=== PATIENT | female | born 1955 | race Caucasian/White ===

== ENCOUNTER → 2017-07-15 10:22 | Outpatient (POV) | payer MEDICARE, SELFPAY | PROVIDERS: Visit Provider Dentist | DX: Z00.00 Encounter for general adult medical examination without abnormal findings (principal) ==

== ENCOUNTER → 2017-07-29 11:51 | Outpatient (POV) | payer MEDICARE, SELFPAY | PROVIDERS: Visit Provider Dentist | DX: Z00.00 Encounter for general adult medical examination without abnormal findings (principal) ==

== ENCOUNTER → 2022-03-23 17:59 | Outpatient (CLI) | payer MEDICARE, SELFPAY | PROVIDERS: PCP Family Medicine; Visit Provider Family Medicine | DX: R30.0 Dysuria (principal); B96.29 Other Escherichia coli [E. coli] as the cause of diseases classified elsewhere | CPT/HCPCS: 87086; 87088; 87186 ==

== ENCOUNTER → 2022-07-02 17:30 | Outpatient (CLI) | payer MEDICARE, SELFPAY | PROVIDERS: PCP Family Medicine; Visit Provider Family Medicine | DX: J02.9 Acute pharyngitis, unspecified (principal) | CPT/HCPCS: 87070; C9803; U0003; U0005 ==

== ENCOUNTER → 2022-12-31 23:51 | Outpatient (CLI) | payer MEDICARE, SELFPAY | PROVIDERS: PCP Family Medicine; Visit Provider Family Medicine | DX: N39.0 Urinary tract infection, site not specified (principal); B96.29 Other Escherichia coli [E. coli] as the cause of diseases classified elsewhere | CPT/HCPCS: 87086; 87088; 87186 ==

== ENCOUNTER → 2023-02-19 17:53 | Outpatient (CLI) | payer MEDICARE, SELFPAY | PROVIDERS: PCP Family Medicine; Visit Provider Family Medicine | DX: R30.0 Dysuria (principal); B96.29 Other Escherichia coli [E. coli] as the cause of diseases classified elsewhere | CPT/HCPCS: 87086 ==

== ENCOUNTER → 2023-04-21 16:40 | Outpatient (CLI) | payer MEDICARE, SELFPAY | PROVIDERS: PCP Family Medicine; Visit Provider Family Medicine | DX: N39.0 Urinary tract infection, site not specified (principal); B96.4 Proteus (mirabilis) (morganii) as the cause of diseases classified elsewhere; B96.1 Klebsiella pneumoniae [K. pneumoniae] as the cause of diseases classified elsewhere; B96.89 Other specified bacterial agents as the cause of diseases classified elsewhere | CPT/HCPCS: 87086 ==

== ENCOUNTER 2023-05-21 16:22 | Outpatient (CLI) | payer MEDICARE, SELFPAY | END 2023-05-21 23:59 | LOC: LAB.DROPOF 16:23 | PROVIDERS: PCP Nurse Practitioner Family; Visit Provider Nurse Practitioner Family | DX: N39.0 Urinary tract infection, site not specified (principal); B96.20 Unspecified Escherichia coli [E. coli] as the cause of diseases classified elsewhere; B96.89 Other specified bacterial agents as the cause of diseases classified elsewhere | CPT/HCPCS: 87086 ==

== ENCOUNTER 2023-05-31 15:22 | Outpatient (CLI) | payer MEDICARE, SELFPAY ==
[2023-06-04 00:09] LABS: Atopobium vaginae Low - 0 Score (.); BVAB2 Low - 0 Score (.); Candida albicans NAA Negative (Negative); Candida glabrata Negative (Negative); Chlamydia Trachomatis NAA Negative (Negative); HSV 1 NAA Negative (Negative); HSV 2 NAA Negative (Negative); Megasphaera 1 Low - 0 Score (.); Neisseria gonorrhoeae NAA Negative (Negative); Trich vag NAA Negative (Negative)
[2023-06-09 10:34] LABS: Atopobium vaginae 0; Bacterial Vaginosis Associated 0; Candida albicans, NAA 0
[2023-06-09 10:35] LABS: Candida glabrata, NAA 0; Megasphaera 1 0
[2023-06-09 20:13] LABS: Mycoplasma genitalium NAA Negative (Negative)
== END 2023-05-31 23:59 ==
LOC: LAB.DROPOF 15:22
PROVIDERS: PCP Nurse Practitioner Family; Visit Provider Urology
DX: B37.31 Acute candidiasis of vulva and vagina (principal); N76.0 Acute vaginitis; N39.0 Urinary tract infection, site not specified; B96.29 Other Escherichia coli [E. coli] as the cause of diseases classified elsewhere; R10.30 Lower abdominal pain, unspecified; R32 Unspecified urinary incontinence
CPT/HCPCS: 87086; 87491; 87529; 87563; 87591; 87661; 87798; 87801

== ENCOUNTER 2023-06-02 14:49 | Outpatient (CLI) | payer MEDICARE, SELFPAY ==
--- NOTE | 2023-06-02 14:50 | US_ITS ---
FINAL REPORT CLINICAL HISTORY: UTI X 5 WEEKS COMPARISON: None FINDINGS: RENAL ULTRASOUND: The right kidney measures 12 cm in length. There is no evidence of hydronephrosis or perinephric fluid collections. The left kidney measures 11.1 cm in length. There is no evidence of hydronephrosis or perinephric fluid collections. Incidental note is made of multiple splenic calcifications. IMPRESSION: Unremarkable bilateral renal ultrasound without evidence of hydronephrosis. Reviewed, Interpreted and Dictated by Abhi Chavez MD Transcribed by Mary Kay Espinoza Authenticated and [facility]
--- NOTE | 2023-06-02 15:18 | XR_ITS ---
FINAL REPORT CLINICAL HISTORY: UTI COMPARISON: None FINDINGS: SINGLE VIEW ABDOMEN A single view of the abdomen was obtained. There is a nonobstructive bowel gas pattern. There are no abnormally dilated loops of small bowel. No abnormal calcifications are identified. IMPRESSION: Nonobstructive bowel gas pattern. Reviewed, Interpreted and Dictated by Abhi Chavez MD Transcribed by Elise Arshad Authenticated and [facility]
[2023-06-02 16:01] LABS: Blood Urea Nitrogen 19 mg/dl (7-17); Estimated Glomerular Filt Rate 55 ml/min (>60); GFR (African American) 67 ML/MIN (>60)
== END 2023-06-02 23:59 ==
LOC: RAD 14:50
PROVIDERS: PCP Nurse Practitioner Family; Visit Provider Urology
DX: N39.0 Urinary tract infection, site not specified (principal); R32 Unspecified urinary incontinence
CPT/HCPCS: 36415; 74018; 76770; 82565; 84520

== ENCOUNTER 2023-08-16 23:19 | Outpatient (CLI) | payer MEDICARE, SELFPAY ==
[2023-08-16 17:58] LABS: Basophils # 0.1 K/mm3 (0-0.2); Basophils % 1.2 % (0.1-2.0); Eosinophils # 0.2 K/mm3 (0.0-0.4); Eosinophils % 2.1 % (0.1-12.0); Hematocrit 40.3 % (37.0-47.0); Hemoglobin 13.2 g/dL (12.2-16.2); Lymphocytes # 2.5 K/mm3 (0.7-4.5); Lymphocytes % 31.8 % (10-50); Mean Corpuscular HGB Conc 32.9 g/dL (31.8-35.4); Mean Corpuscular Hemoglobin 31.2 pg (27.0-31.2); Mean Platelet Volume 8.7 fl (7.4-10.4); Monocytes # 0.6 K/mm3 (0.1-1.0); Neutrophils # 4.6 K/mm3 (1.8-7.8); Neutrophils % 57.7 % (37.0-80.0); Platelet Count 364 K/mm3 (142-424); Red Blood Count 4.24 M/mm3 (4.20-5.40); Red Cell Distribution Width 12.5 % (11.5-17.5)
[2023-08-16 18:51] LABS: Alanine Aminotransferase 28 U/L (12-78); Albumin Level 4.2 g/dl (3.5-5.0); Albumin/Globulin Ratio 1.4 (1.1-1.8); Alkaline Phosphatase 167 U/L (38-126); Anion Gap 12.9 mEq/L (5-15); Aspartate Amino Transferase 30 U/L (14-36); Bilirubin,Total 0.7 mg/dl (0.2-1.3); Blood Urea Nitrogen 20 mg/dl (7-17); Calcium 9.9 mg/dl (8.4-10.2); Carbon Dioxide 27 mmol/L (22.0-30.0); Chloride 104 mmol/L (98-107); Chol/HDL Ratio 6.8 (1-3.5); Cholesterol 273 mg/dl (140-200); Estimated Glomerular Filt Rate 62 ml/min (>60); GFR (African American) 76 ML/MIN (>60); Globulin 2.9 g/dL (1.3-3.2); Glucose 213 mg/dl (74-100); HDL Cholesterol 40 mg/dl (40-60); Potassium 3.9 mmoL/L (3.5-5.1); Sodium 140 mmol/L (136-145); Total Protein,Serum 7.1 g/dl (6.3-8.2); Triglycerides 171 mg/dl (30-150); VLDL Cholesterol 34 mg/dL (0-40)
[2023-08-16 18:59] LABS: 25-OH Vitamin D, Total 35.4 ng/mL (30-100)
[2023-08-16 19:07] LABS: C-Reactive Protein 1.5 mg/L (0-4); Direct LDL Cholesterol 166.32 mg/dL (100-129)
[2023-08-16 19:27] LABS: Thyroid Stimulating Hormone 2.94 uIU/mL (0.465-4.68)
[2023-08-16 19:29] LABS: Hemoglobin A1C 10.8 % (4.0-6.0)
[2023-08-16 19:46] LABS: Vitamin B12 662 pg/mL (239-931)
[2023-08-18 08:30] LABS: FSH 57.5 mIU/mL (25.8-134.8); Progesterone 0.1 ng/mL (.)
[2023-08-21 22:07] LABS: Estrogen 192 pg/mL (40-244)
== END 2023-08-16 23:59 ==
LOC: LAB.DROPOF 23:20
PROVIDERS: PCP Nurse Practitioner Family; Visit Provider Nurse Practitioner Family
DX: E03.9 Hypothyroidism, unspecified (principal); R53.83 Other fatigue; R73.9 Hyperglycemia, unspecified; E78.1 Pure hyperglyceridemia; E55.9 Vitamin D deficiency, unspecified; Z68.26 Body mass index [BMI] 26.0-26.9, adult
CPT/HCPCS: 80053; 80061; 82306; 82607; 82672; 83001; 83036; 84144; 84443; 85025; 86140

== ENCOUNTER 2023-09-06 18:00 | Outpatient (CLI) | payer MEDICARE, SELFPAY | END 2023-09-06 23:59 | disposition home or self-care (01) | LOC: LAB.DROPOF 09-07 08:06 | PROVIDERS: PCP Family Medicine; Visit Provider Family Medicine | DX: N39.0 Urinary tract infection, site not specified (principal); B96.29 Other Escherichia coli [E. coli] as the cause of diseases classified elsewhere | CPT/HCPCS: 87086 ==

== ENCOUNTER 2023-11-16 16:42 | Outpatient (CLI) | payer MEDICARE, SELFPAY ==
[2023-11-16 17:18] LABS: Basophils # 0.1 K/mm3 (0-0.2); Basophils % 0.9 % (0.1-2.0); Eosinophils # 0.2 K/mm3 (0.0-0.4); Eosinophils % 2.9 % (0.1-12.0); Hematocrit 38.5 % (37.0-47.0); Hemoglobin 12.6 g/dL (12.2-16.2); Lymphocytes # 2.3 K/mm3 (0.7-4.5); Lymphocytes % 31.8 % (10-50); Mean Corpuscular HGB Conc 32.7 g/dL (31.8-35.4); Mean Corpuscular Volume 94.6 fl (81-99); Mean Platelet Volume 8.7 fl (7.4-10.4); Monocytes # 0.4 K/mm3 (0.1-1.0); Monocytes % 5.9 % (1.7-9.3); Neutrophils # 4.3 K/mm3 (1.8-7.8); Neutrophils % 58.4 % (37.0-80.0); Platelet Count 367 K/mm3 (142-424); Red Blood Count 4.06 M/mm3 (4.20-5.40); Red Cell Distribution Width 13.1 % (11.5-17.5); White Blood Count 7.4 K/mm3 (4.8-10.8)
[2023-11-16 17:55] LABS: Alanine Aminotransferase 25 U/L (12-78); Albumin Level 4.1 g/dl (3.5-5.0); Albumin/Globulin Ratio 1.4 (1.1-1.8); Alkaline Phosphatase 132 U/L (38-126); Anion Gap 11.4 mEq/L (5-15); Aspartate Amino Transferase 26 U/L (14-36); Bilirubin,Total 0.5 mg/dl (0.2-1.3); Blood Urea Nitrogen 19 mg/dl (7-17); Calcium 9.9 mg/dl (8.4-10.2); Carbon Dioxide 28 mmol/L (22.0-30.0); Chloride 108 mmol/L (98-107); Chol/HDL Ratio 4.3 (1-3.5); Cholesterol 204 mg/dl (140-200); Estimated Glomerular Filt Rate 50 ml/min (>60); GFR (African American) 60 ML/MIN (>60); Globulin 2.9 g/dL (1.3-3.2); Glucose 110 mg/dl (74-100); HDL Cholesterol 48 mg/dl (40-60); Potassium 4.4 mmoL/L (3.5-5.1); Sodium 143 mmol/L (136-145); Triglycerides 117 mg/dl (30-150); VLDL Cholesterol 23 mg/dL (0-40)
[2023-11-16 18:07] LABS: Direct LDL Cholesterol 117.87 mg/dL (100-129)
[2023-11-16 18:28] LABS: Thyroid Stimulating Hormone 1.94 uIU/mL (0.465-4.68)
[2023-11-16 19:19] LABS: Hemoglobin A1C 8.5 % (4.0-6.0)
== END 2023-11-16 23:59 | disposition home or self-care (01) ==
LOC: LAB.DROPOF 16:43
PROVIDERS: PCP Family Medicine; Visit Provider Family Medicine
DX: E11.9 Type 2 diabetes mellitus without complications (principal); Z79.84 Long term (current) use of oral hypoglycemic drugs
CPT/HCPCS: 80053; 80061; 83036; 84443; 85025

== ENCOUNTER 2023-12-13 16:47 | Outpatient (CLI) | payer MEDICARE, SELFPAY | END 2023-12-13 23:59 | disposition home or self-care (01) | LOC: LAB.DROPOF 16:48 | PROVIDERS: PCP Nurse Practitioner Family; Visit Provider Nurse Practitioner Family | DX: N39.0 Urinary tract infection, site not specified (principal) | CPT/HCPCS: 87086; 87088; 87186 ==

== ENCOUNTER 2024-01-28 16:33 | Outpatient (CLI) | payer MEDICARE, SELFPAY | END 2024-01-28 23:59 | disposition home or self-care (01) | LOC: LAB.DROPOF 16:33 | PROVIDERS: PCP Nurse Practitioner Family; Visit Provider Nurse Practitioner Family | DX: R39.9 Unspecified symptoms and signs involving the genitourinary system (principal); N39.0 Urinary tract infection, site not specified | CPT/HCPCS: 87086; 87088; 87186 ==

== ENCOUNTER 2024-10-03 14:38 | Outpatient (CLI) | payer MEDICARE, SELFPAY | END 2024-10-03 23:59 | disposition home or self-care (01) | LOC: LAB.DROPOF 10-04 10:20 | PROVIDERS: PCP Family Medicine; Visit Provider Family Medicine | DX: N39.0 Urinary tract infection, site not specified (principal); B96.20 Unspecified Escherichia coli [E. coli] as the cause of diseases classified elsewhere | CPT/HCPCS: 87086; 87088; 87186 ==

== ENCOUNTER 2024-11-24 14:45 | Outpatient (CLI) | payer MEDICARE, SELFPAY ==
--- OUTSIDE RECORDS SUMMARY | 2024-11-27 10:33 | XMS_ITS | Clinical Summary ---
[facility] Address [address] [place] [address] Care Team Providers Care Federal Judicial Law Clerk Name Role Phone Davion Sanchez MD Primary Care Provider [phone] Allergies Active Allergy Reactions Criticality Noted Date Comments Diphenhydramine Dizziness Medium 05/23/2018 Caffeine Arrhythmia Low 05/23/2018 Contrast Dye (Echo Or Unknown Ct/Mr) Hives Medium 04/01/2018 Ibuprofen Arrhythmia Low 05/23/2018 Levofloxacin Myalgia Medium 05/23/2018 Sulfa Antibiotics Other (See Comments) Medium 04/01/20 18 Blisters in the mouth Medications chlorpheniramin e (CHLOR-TRIMETON ) 4 MG tablet Take 4 mg by mouth Daily. Active Vitamin D, Cholecalciferol , (CHOLECALCIFERO L) 400 units tablet Take 400 Units by mouth Daily. Active citalopram (CeleXA) 10 MG tablet Take 20 mg by mouth Every Night. Active dexamethasone (DECADRON) 0.5 MG tablet Take 0.5 mg by mouth Daily. Active fluticasone (FLONASE) 50 MCG/ACT nasal spray 2 sprays into the nostril(s) as directed by provider Daily. Active gemfibrozil (LOPID) 600 MG tablet Take 600 mg by mouth 2 (Two) Times a Day. Active levothyroxine (SYNTHROID, LEVOTHROID) 50 MCG tablet Take 50 mcg by mouth Daily. Active simvastatin (ZOCOR) 10 MG tablet Take 10 mg by mouth Every Night. Active promethazine (PHENERGAN) 12.5 MG tablet Take 12.5 mg by mouth Every 6 (Six) Hours As Needed for Nausea or Vomiting. Active Multiple Vitamins-Minera ls (MULTI COMPLETE PO) Take 1 tablet by mouth. Active Estrogens, Conjugated (PREMARIN VA) Insert 1 dose into the vagina. Active phenylephrine (SUDAFED PE) 10 MG tablet Take 10 mg by mouth Every 4 (Four) Hours As Needed for Congestion (inner ear). Active ondansetron (ZOFRAN) 4 MG tablet Take 4 mg by mouth Every 8 (Eight) Hours As Needed for Nausea or Vomiting. Active nystatin (MYCOSTATIN) 181600 UNIT/GM cream Apply topically to the appropriate area as directed 2 (Two) Times a Day. Active acetaminophen (TYLENOL) 500 MG tablet Take 2 tablets by mouth Every 6 (Six) Hours As Needed for Mild Pain for up to 4 doses. 8 tablet 9 Active ALPRAZolam (XANAX) 0.25 MG tablet Take 1 tablet by mouth 2 (Two) Times a Day. 10 tablet 9 Active aspirin 81 MG chewable tablet Chew 1 tablet Daily. 9 Active docusate sodium 100 MG capsule Take 100 mg by mouth 2 (Two) Times a Day. 9 Active HYDROcodone-taylor taminophen (NORCO) 5-325 MG per tablet Take 1 tablet by mouth Every 6 (Six) Hours As Needed for pain 6 tablet 11/25/2020 1:20 PM EDT 1 Active ibuprofen (ADVIL,MOTRIN) 600 MG tablet Take 1 tablet by mouth Every 6 (Six) Hours As Needed for pain 15 tablet 1 Active albuterol sulfate HFA 108 (90 Base) MCG/ACT inhaler Inhale 2 puffs Every 4 (Four) Hours As Needed for Wheezing or Shortness of Air. 18 g 1 Active amoxicillin-cla vulanate (AUGMENTIN) 875-125 MG per tablet Take 1 tablet by mouth Every 12 (Twelve) Hours. 14 tablet 3 Active Active Problems Problem Noted Date Diagnosed Date Aspiration pneumonia of left lung due to vomit 1 06/12/2020 Pneumonia of left lung due to infectious organis m 04/11/2021 Esophagitis 04/11/2021 IBS (irritable bowel syndrome) 04/11/2021 History of breast cancer 04/11/2021 Meniere's disease 04/11/2021 S/P low anterior resection 06/01/2018 Leukocytosis, likely reactive 05/31/2018 Acute blood loss anemia, mild, asymptomatic 05/11 Acute postoperative pain 05/31/2018 History of colonic diverticulitis 05/30/2018 Prediabetes 05/30/2018 Hypokalemia, replaced. 04/01/2018 Hypothyroidism Hyperlipidemia Diverticulitis Anxiety and depression Resolved Problems Problem Noted Date Diagnosed Date Resolved Date Elevated liver enzymes 04/11/202104/13 PATO (acute kidney injury) 04/11/2021 Lactic acidosis 04/11/2021 04/13/2021 Lower GI bleed 04/01/2018 04/06/2018 Acute blood loss anemia 04/01/201803/11 Family History Medical History Relation Name Comments Ulcerative colitis Father Relation Name Status Comments Father Social History Tobacco Use Types Packs/Day Years Used Date Smoking Tobacco: Former Cigarettes 1 3 1 978 - 1980 Smokeless Tobacco: Never Alcohol Use Standard Drinks/Week Comments No 0 (1 standard drink = 0.6 oz pur e alcohol) Abuse Screen Answer Date Recorded Unsafe at Home or Work/School Not on file Feels Threatened by Someone? Not on file 11/2023 Does Anyone Keep You from Co ntacting Others or Doint Things Outside the Home? Not on file 06/16/2023 Physical Sign of Abuse Present Not on file 0 06/16/2023 Housing Stability Answer Date Recorded Current Living Arrangements Not on file 01/2023 Potentially Unsafe Housing Conditions Not on lee ann e 02/15/2023 Family and Community Support Answer Bill e Recorded Help with Day-to-Day Activities Not on file 02/15/2023 Lonely or Isolated Not on file 02/15/2023 Employment Answer Date Recorded Do you want help finding or keeping work or a ban b? Not on file 02/15/2023 Disabilities Answer Date Recorded Concentrating, Remembering, or Making Decisions Difficulty Not on file 02/15/2023 Doing Errands Independently Difficulty Not on fi le 02/15/2023 Education Answer Date Recorded Help with school or training? Not on file Preferred Language Not on file 02/15/2023 Comments No Sex and Gender Information Value Date Recorded Sex Assigned at Not on file Legal Sex Female 10:46 AM EDT Gender Identity Not on file Sexual Orientation Not on file Last Filed Vital Signs Vital Sign Reading Time Taken Comments Blood Pressure 141/122 06/15/2022 4:30 AM EST Pulse 90 06/15/2022 12:04 AM EST Temperature 36.9 C (98.4 F) 06/15/2022 12:04 AM EST Respiratory Rate 19 06/15/2022 12:04 AM EST Oxygen Saturation 98% 06/15/2022 12:04 AM EST Inhaled Oxygen Concentration - - Weight 77.1 kg (170 lb) 06/14/2022 11:50 PM EST Height 162.6 cm (5' 4 ) 06/14/2022 11:50 PM EST Body Mass Index 29.18 06/14/2022 11:50 PM EST Plan of Treatment Health Maintenance Due Date Last Done Comments DXA SCAN 1955 LIPID PANEL 1955 TDAP/TD VACCINES (1 - Tdap) 01/30/1975 MAMMOGRAM 1996 COLOGUARD 01/30/2001 COLON CANCER SCREENING 5 YEA R SIGMOIDOSCOPY 01/30/2001 CT COLONOGRAPHY 01/30/2001 FECAL OCCULT BLOOD TEST 01/30/2001 FIT Testing (1 year) 01/30/2001 Pneumococcal Vaccine 50+ (1 of 1 - PCV) 01/30/2006 ZOSTER VACCINE (1 of 2) 01/30/2006 ANNUAL PHYSICAL 04/07/2018 COVID-19 Vaccine (1 - season) 2024 INFLUENZA VACCINE 02/07/2025 COLONOSCOPY 04/02/2028 04/02/2018, 04/02/2018 COLORECTAL CANCER SCREENING 04/02/2028 HEPATITIS C SCREENING Completed 04/11/2021 Medical Devices Implanted Type Area C.O.D. Audit Clerk Device Identifier Shelf Expiration Date Model / Serial / Lot Reload Stplr [place] Flex Gst Stnd 60 Wht - [id number] Implanted:Qty: 1 on 05/30/2018 by Martha Sandoval MD at [facility] Implant [employer] 08/07/2020 [id number] / / [id number] Procedures Procedure Name Priority Date/Time Associated Diagnosis Comments HEPATITIS PANEL, ACUTE Add-On 04/11/2021 4:41 PM EST COLONOSCOPY 04/02/2018 7:02 PM EST from Last 3 Months or Most Recently Relevant to Health Maintenance Results * Hepatitis Panel, Acute (04/11/2021 4:41 PM EST) Hepatitis B Surface Ag Non-Reacti ve Non-Reacti ve 04/11/2021 9:11 PM EST [facility] Hep A IgM Non-Reacti ve Non-Reacti ve 04/11/2021 9:11 PM EST [facility] Hep B C IgM Non-Reacti ve Non-Reacti ve 04/11/2021 9:11 PM EST [facility] Hepatitis C Ab Non-Reacti ve Non-Reacti ve 04/11/2021 9:11 PM EST [facility] Blood Line / Unknown 04/11/2021 4: 41 PM EST 04/11/2021 4:48 PM EST Narrative [facility] - 04/11/2021 9:11 PM EST Results may be falsely decreased if patient taking Biotin. Tavon Todd DO LAB BLOOD ORDERABLES Final Resu lt [facility]
[address] [place] [address], * COLONOSCOPY (04/02/2018 7:02 PM EST) Jeremias Hung MD INTERFACE NEEDS Final Result from Last 3 Months or Most Recently Relevant to Health Maintenance Insurance MEDICARE A & B Member Subscriber Plan / Payer (Ef fective 2008-Present) Name:Nakita Carranza Member ID:[id number] Relation to Subscriber:Self Name:Nakita Carranza Subscriber ID:[id number] Payer ID:[id number] Group ID:Not on file Type:Not on file Address: [id number] HEALTH CARE OPTIONS Advance Directives * CPR (Attempt to Resuscitate) (Latest Code Status on File) Date Activated Date Inactivated Comments 04/11/2021 8:49 PM 04/13/2021 4:43 PM Question Answer Comments Code Status (Patient has no pulse and is not breathing): CPR (Attempt to Resuscitate) Medical Interventions (Patie nt has pulse or is breathing): Full Support Level Of Support Discussed With: Patient * CPR (Attempt to Resuscitate) Date Activated Date Inactivated Comments 05/30/2018 4:42 PM 06/03/2018 7:13 PM Question Answer Comments Code Status (Patient has no pulse and is not breathing): CPR (Attempt to Resuscitate) Medical Interventions (Patie nt has pulse or is breathing): Full Level Of Support Discussed With: Patient * CPR (Attempt to Resuscitate) Date Activated Date Inactivated Comments 04/01/2018 5:53 PM 04/06/2018 2:53 PM Question Answer Comments Code Status (Patient has no pulse and is not breathing): CPR (Attempt to Resuscitate) Medical Interventions (Patie nt has pulse or is breathing): Full Healthcare Agents on File Name Relationship Healthcare Agent [facility] Communication Yeni Jeancarlos [facility] Surrogate Care Teams Federal [employer] Law Clerk Relationship Specialty Start Date End Date Davion Sanchez MD PCP - General Family Medicine 06/15/22
--- OUTSIDE RECORDS SUMMARY | 2024-11-27 10:33 | XMS_ITS | Clinical Summary ---
Author Organization [facility] Address [address] [place] [address] Care Team Providers Care Shield Runner Name Role Phone Unavailable Primary Care Provider Unavailabl e Social History Tobacco Use Types Packs/Day Years Used Date Smoking Tobacco: Never Assessed Comments Unknown Sex and Gender Information Value Date Recorded Sex Assigned at Not on file Legal Sex Female 8:32 PM EDT Gender Identity Not on file Sexual Orientation Not on file Plan of Treatment Health Maintenance Due Date Last Done Comments [facility]-Bone Density Scan 1955 [facility]-Depression Screening 1955 [facility]-Infant/Child/Adol SDOH Screenings 1955 [facility]- SDOH Screenings 01/30/1974 [facility]-Adult SDOH Screenings 01/30/1974 [facility]-DTaP,Tdap,and Td Vaccines (1 - Tdap) 01/30/1975 CT Colonography 01/30/2001 Colonoscopy 01/30/2001 FIT-DNA 01/30/2001 FIT 01/30/2001 FOBT 01/30/2001 Sigmoidoscopy 01/30/2001 [facility]-Colorectal Cancer Screening 01/30/2001 [facility]-Zoster Vaccines (1 of 2) 01/30/2006 [id number] Vaccine ( season) 2024 03/18/2023, 02/10/2022, 03/27/2021, Additional history exists [facility]-Influenza Vaccine (#1) 01/08/202504/15, 02/12/2021, 02/21/2018 [facility]-RSV Vaccine: 60+ Years or (1 - 1-dose 75+ series) 01/30/2031 [facility]-Pneumococcal Vaccine: 50+ Years Completed 12/31/2022 HPV Vaccines Aged Out No longer eligi ble based on patient's age to complete this topic [facility]-HIB Vaccines Aged Out No longer e ligible based on patient's age to complete this topic [facility]-Hepatitis A Vaccines Aged Out No longer eligible based on patient's age to complete this topic [facility]-IPV Vaccines Aged Out No longer e ligible based on patient's age to complete this topic [facility]-Rotavirus Vaccines Aged Out No lo nger eligible based on patient's age to complete this topic Insurance MEDICARE
--- OUTSIDE RECORDS SUMMARY | 2024-11-27 10:33 | XMS_ITS | Data Portability ---
Author Organization [facility] KEAGAN VelardeS HUMBIRD CLOSED Address [address] [facility] [address] [place] [address] Care Team Providers Care Collection Supervisor Name Role Phone AMRIT MACIEL Referring Provider AMRIT MACIEL Primary Care Provider Assessment Encounter Date Assessment Date Assessment LastModified by Organization Details LastModified Time 11/18/2023 11/18/2023 We discussed UTI prevention with adequate hydration, timed and double voids. We discussed phentermine for UTI suppression. We also discussed option for cranberry tablets and d-mannose. We reviewed diagnosis of atrophic vaginitis and recommendation for continuation of topical vaginal estrogen creams. [email or web address] Not available 11/21/2023 18:40:31 02/03/2024 02/03/2024 We discussed UTI prevention with adequate hydration, timed and double voids. We discussed phentermine for UTI suppression. We also discussed option for cranberry tablets and d-mannose. We reviewed diagnosis of atrophic vaginitis and recommendation for continuation of topical vaginal estrogen creams. We discussed anatomic evaluation with cystoscopy and CT scan. We reviewed her most recent culture and sensitivity report. We reviewed her allergies in association with the sensitivity for oral and IV antibiotics. She understands the difficulties of treating with oral antibiotics based upon her current allergies and the resistance pattern of the organism. [email or web address] Not available 02/09/2024 10:56:47 02/29/2024 02/29/2024 DATE OF PROCEDUR E: 02/29/2024 PROCEDURE PERFORMED: Cystourethroscopy SURGEON: Yo Mccray M.D. ANESTHESIA: Local BLOOD LOSS: None PREOPERATIVE INDICATIONS: Recurrent urinary tract infection POSTOPERATIVE INDICATIONS: Recurrent urinary tract infection DESCRIPTION OF PROCEDURE: Patient was correctly identified in preoperative holding area. Informed consent was obtained. Risks and benefits were reviewed with patient. Patient was taken to procedure room and positioned supine frog-leg position. All pressure points padded. Proper timeout procedure completed. Genitourinary area prepped and draped in the normal sterile fashion. Lidocaine jelly instilled for local analgesia. Flexible cystoscope advanced through the urethra. Bladder mucosa without evidence of erythema, papillary bladder mass, foreign body. Ureteral orifices in normal anatomic position. The urethra was without evidence of stricture or stenosis. The cystoscope was withdrawn atraumatically. Patient tolerated procedure well. DISPOSITION: Patient was taken to the recovery in stable condition. Discharged home with instructions for outpatient follow-up. [email or web address] Not available 03/05/2024 18:21:48 06/08/2024 06/08/2024 We discussed UTI prevention with adequate hydration, timed and double voids. We discussed phentermine for UTI suppression. We also discussed option for cranberry tablets and d-mannose. We reviewed diagnosis of atrophic vaginitis and recommendation for continuation of topical vaginal estrogen creams. Diflucan for treatment of vaginal candidiasis [email or web address] Not available 06/11/2024 11:36:05 Plan of Treatment Reminders Order Date Submit Date Provider Last Modified By Organization Details Last Modified Time Details Appointments RECHECK 2024 03:00P M YO MCCRAY MD Not available Not available Not available Lab urinalysi s panel, auto 2024 025 [email or web address] 4 [facility] Extended Services With [address], [place], [address], 06/11/2024 11:36:06 culture, urine 2023 024 [facility], [facility] [place], [address], 02/05/2024 11:25:12 urinalysi s panel, auto 2023 [email or web address] [place] [address] Extended Services With [address], [place], [address], 02/04/2024 10:23:08 urinalysi s panel, auto 2023 024 [email or web address] 4 [facility] Services With [facility], [address], [place], [address], 11/21/2023 18:40:34 Referral None recorded. Procedures None recorded. Surgeries cystoscop y (SURG) [email or web address] [facility], [address] [facility], [place], [address], 02/14/2024 17:12:[address], abdomen + pelvis, w/o contrast - CT ABD/PEL W/O CONTRAST PLEASE CALL NAKITA CARRANZA @ 2023 024 [facility] Centralized Scheduling, [address] , [place], [address], 02/18/2024 15:42:22 Medication Orders Diflucan 150 mg tablet 2024 025 [facility], [address] [place] [address], [address], 06/08/2024 15:28:18 methenami ne hippurate 1 gram tablet 2023 024 [facility], [address] [place] [address], [address], 11/18/2023 16:01:21 Patient TargetsNo targets recorded. Patient Instructions Encounter Date Encounter Id Patient Instructions Last Modified By Organization Details Last Modified Time 11/18/2023 [id number] learning about healthy weight Not available 11/21/2023 18:40:32 02/03/2024 [id number] learning about healthy weight [email or web address] Not available 02/04/2024 10:23:08 06/08/2024 [id number] learning about healthy weight [email or web address] Not available 06/11/2024 11:36:06 Reason for Referral None Reported. Results Created Date Observation Date Name Description Value Unit Range Abnormal Flag Note LastModifiedBy Organization Detail LastModifiedTime 11/18/19 24 11/18/2023 urina lysis panel , auto Unknown Analyte Clean Catch Not Available [facility] Extended Services With [address] [place], [address], 11/18/2023 17:15:04 11/18/19 24 11/18/2023 urina lysis panel , auto Unknown Analyte Yellow Not Available Count includes the [facility] Extended Services With [address] [place], [address], 11/18/2023 17:15:04 11/18/19 24 11/18/2023 urina lysis panel , auto Unknown Analyte Clear Not Available Count includes the [facility] Extended Services With [address] [place], [address], 11/18/2023 17:15:04 11/18/19 24 11/18/2023 urina lysis panel , auto Unknown Analyte 1.010 Not Available Count includes the [facility] Extended Services With [address] [place], [address], 11/18/2023 17:15:04 11/18/19 24 11/18/2023 urina lysis panel , auto Unknown Analyte 1.003- 1.035 Not Available [facility] Extended Services With [address] [place], [address], 11/18/2023 17:15:04 11/18/19 24 11/18/2023 urina lysis panel , auto Unknown Analyte 5.0 Not Available Count includes the [facility] Extended Services With [address] [place], [address], 11/18/2023 17:15:04 11/18/19 24 11/18/2023 urina lysis panel , auto Unknown Analyte 5.0-8. 0 Not Available [facility] Extended Services With [address], [place], [address], 11/18/2023 17:15:04 11/18/19 24 11/18/2023 urina lysis panel , auto Unknown Analyte Negati ve Not Available [facility] Extended Services With [address] [place], [address], 11/18/2023 17:15:04 11/18/19 24 11/18/2023 urina lysis panel , auto Unknown Analyte Negati ve Not Available [facility] Extended Services With [address] [place], [address], 11/18/2023 17:15:04 11/18/19 24 11/18/2023 urina lysis panel , auto Unknown Analyte Negati ve Not Available [facility] Extended Services With [address], [place], [address], 11/18/2023 17:15:04 11/18/19 24 11/18/2023 urina lysis panel , auto Unknown Analyte Negati ve Not Available [facility] Extended Services With [address] [place], [address], 11/18/2023 17:15:04 11/18/19 24 11/18/2023 urina lysis panel , auto Unknown Analyte Negati ve Not Available [facility] Extended Services With [address] [place], [address], 11/18/2023 17:15:04 11/18/19 24 11/18/2023 urina lysis panel , auto Unknown Analyte Negati ve Not Available [facility] Extended Services With [address] [place], [address], 11/18/2023 17:15:04 11/18/19 24 11/18/2023 urina lysis panel , auto Unknown Analyte Normal Not Available Count includes the [facility] Extended Services With [address] [place], [address], 11/18/2023 17:15:04 11/18/19 24 11/18/2023 urina lysis panel , auto Unknown Analyte Normal Not Available Count includes the [facility] Extended Services With [address] [place], [address], 11/18/2023 17:15:04 11/18/19 24 11/18/2023 urina lysis panel , auto Unknown Analyte Negati ve Not Available [facility] Extended Services With [address] [place], [address], 11/18/2023 17:15:04 11/18/19 24 11/18/2023 urina lysis panel , auto Unknown Analyte Negati ve Not Available [facility] Extended Services With [address] [place], [address], 11/18/2023 17:15:04 11/18/19 24 11/18/2023 urina lysis panel , auto Unknown Analyte Normal Not Available Count includes the [facility] Extended Services With [address] [place], [address], 11/18/2023 17:15:04 11/18/19 24 11/18/2023 urina lysis panel , auto Unknown Analyte Normal 1 mg/dl Not Available [facility] Extended Services With [address] [place], [address], 11/18/2023 17:15:04 11/18/19 24 11/18/2023 urina lysis panel , auto Unknown Analyte 1 mg/dl (+) Not Available [facility] Extended Services With [address], [place], [address], 11/18/2023 17:15:04 11/18/19 24 11/18/2023 urina lysis panel , auto Unknown Analyte Negati ve Not Available [facility] Extended Services With [address], [place], [address], 11/18/2023 17:15:04 11/18/19 24 11/18/2023 urina lysis panel , auto Unknown Analyte Negati ve Not Available [facility] Extended Services With [address], [place], [address], 11/18/2023 17:15:04 11/18/19 24 11/18/2023 urina lysis panel , auto Unknown Analyte Negati ve Not Available [facility] Extended Services With [address], [place], [address], 11/18/2023 17:15:04 02/03/20 24 02/03/2024 URINE CULTU RE pseudomonas aeruginosa Organi sm: Pseudo monas aerugi nosa Not Available [facility] [address] [place], [address], 02/07/2024 09:30:17 02/03/20 24 02/07/2024 URINE CULTU RE urine culture abnormal ISOLA TE #1 COLON Y COUNT : < 10,00 0 CFU/M L Proba ble Gram Negat brianna Bacil loreta; Timblin tion In Progr ess. See Timblin te Resul t(s) Below Pseud omona s aerug inosa Not Available [facility] [address] [place], [address], 02/07/2024 09:30:17 02/03/20 24 02/07/2024 URINE CULTU RE ceftazidime <=1 ug/mL susceptib le Not Available [facility] [address] [place] [address], [address], 02/07/2024 09:30:17 02/03/20 24 02/07/2024 URINE CULTU RE ciprofloxaci n <=0.25 ug/mL susceptib le Not Available [facility] [address] [place] [address], [address], 02/07/2024 09:30:17 02/03/20 24 02/07/2024 URINE CULTU RE gentamicin >8 ug/mL resistant Not Available [facility] [address] [place] [address], [address], 02/07/2024 09:30:17 02/03/20 24 02/07/2024 URINE CULTU RE imipenem 2 ug/mL susceptib le Not Available [facility] [address] [place] [address], [address], 02/07/2024 09:30:17 02/03/20 24 02/07/2024 URINE CULTU RE levofloxacin <=0.5 ug/mL susceptib le Not Available [facility] [address] [place] [address], [address], 02/07/2024 09:30:17 02/03/20 24 02/07/2024 URINE CULTU RE piperacillin /chapo <=16 ug/mL susceptib le Not Available [facility] [address] [place] [address], [address], 02/07/2024 09:30:17 02/03/20 24 02/07/2024 URINE CULTU RE tobramycin >8 ug/mL resistant Not Available [facility] [address] [place] [address], [address], 02/07/2024 09:30:17 09/26/02/03/2024 urina lysis panel , auto Unknown Analyte Clean Catch Not Available [facility] Extended Services With [address] [place], [address], 02/03/2024 16:01:16 02/03/20 24 02/03/2024 urina lysis panel , auto Unknown Analyte Yellow Not Available Count includes the [facility] Extended Services With [address] [place], [address], 02/03/2024 16:01:16 02/03/20 24 02/03/2024 urina lysis panel , auto Unknown Analyte Clear Not Available Count includes the [facility] Extended Services With [address] [place], [address], 02/03/2024 16:01:16 02/03/20 24 02/03/2024 urina lysis panel , auto Unknown Analyte 1.010 Not Available Count includes the [facility] Extended Services With [address] [place], [address], 02/03/2024 16:01:16 02/03/20 24 02/03/2024 urina lysis panel , auto Unknown Analyte 1.003- 1.035 Not Available [facility] Extended Services With [address] [place], [address], 02/03/2024 16:01:16 02/03/20 24 02/03/2024 urina lysis panel , auto Unknown Analyte 6.5 Not Available Count includes the [facility] Extended Services With [address] [place], [address], 02/03/2024 16:01:16 02/03/20 24 02/03/2024 urina lysis panel , auto Unknown Analyte 5.0-8. 0 Not Available [facility] Extended Services With [address] [place], [address], 02/03/2024 16:01:16 02/03/20 24 02/03/2024 urina lysis panel , auto Unknown Analyte 25 Susanna/ul Trace Not Available [facility] Extended Services With [address], [place], [address], 02/03/2024 16:01:16 02/03/20 24 02/03/2024 urina lysis panel , auto Unknown Analyte Negati ve Not Available [facility] Extended Services With [address] [place], [address], 02/03/2024 16:01:16 02/03/20 24 02/03/2024 urina lysis panel , auto Unknown Analyte Negati ve Not Available [facility] Extended Services With [address], [place], [address], 02/03/2024 16:01:16 02/03/20 24 02/03/2024 urina lysis panel , auto Unknown Analyte Negati ve Not Available [facility] Extended Services With [address], [place], [address], 02/03/2024 16:01:16 02/03/20 24 02/03/2024 urina lysis panel , auto Unknown Analyte Negati ve Not Available [facility] Extended Services With [address], [place], [address], 02/03/2024 16:01:16 02/03/20 24 02/03/2024 urina lysis panel , auto Unknown Analyte Negati ve Not Available [facility] Extended Services With [address] [place], [address], 02/03/2024 16:01:16 02/03/20 24 02/03/2024 urina lysis panel , auto Unknown Analyte Normal Not Available Count includes the [facility] Extended Services With [address] [place], [address], 02/03/2024 16:01:16 02/03/20 24 02/03/2024 urina lysis panel , auto Unknown Analyte Normal Not Available Count includes the [facility] Extended Services With [address] [place], [address], 02/03/2024 16:01:16 02/03/20 24 02/03/2024 urina lysis panel , auto Unknown Analyte 15 mg/dl (Sm) Not Available [facility] Extended Services With [address] [place], [address], 02/03/2024 16:01:16 02/03/20 24 02/03/2024 urina lysis panel , auto Unknown Analyte Negati ve Not Available [facility] Extended Services With [address] [place], [address], 02/03/2024 16:01:16 02/03/20 24 02/03/2024 urina lysis panel , auto Unknown Analyte Normal Not Available Count includes the [facility] Extended Services With [address] [place], [address], 02/03/2024 16:01:16 02/03/20 24 02/03/2024 urina lysis panel , auto Unknown Analyte Normal 1 mg/dl Not Available [facility] Extended Services With [address] [place], [address], 02/03/2024 16:01:16 02/03/20 24 02/03/2024 urina lysis panel , auto Unknown Analyte Negati ve Not Available [facility] Extended Services With [address] [place], [address], 02/03/2024 16:01:16 02/03/20 24 02/03/2024 urina lysis panel , auto Unknown Analyte Negati ve Not Available [facility] Extended Services With [address], [place], [address], 02/03/2024 16:01:16 02/03/20 24 02/03/2024 urina lysis panel , auto Unknown Analyte 250 Ryan/ul Not Available [facility] Extended Services With [address], [place], [address], 02/03/2024 16:01:16 02/03/20 24 02/03/2024 urina lysis panel , auto Unknown Analyte Negati ve Not Available [facility] Extended Services With [address], [place], [address], 02/03/2024 16:01:16 02/29/20 24 02/29/2024 urina lysis panel , auto Unknown Analyte Clean Catch Not Available [facility] Surgery Schedule [address] [place], [address], 02/29/2024 13:07:16 02/29/20 24 02/29/2024 urina lysis panel , auto Unknown Analyte Yellow Not Available [facility] Surgery Schedule [address] [place], [address], 02/29/2024 13:07:16 02/29/2002/29/2024 urina lysis panel , auto Unknown Analyte Clear Not Available [facility] Surgery Schedule [address] [place], [address], 02/29/2024 13:07:16 02/29/20 24 02/29/2024 urina lysis panel , auto Unknown Analyte 1.020 Not Available [facility] Surgery Schedule [address] [place], [address], 02/29/2024 13:07:16 02/29/2002/29/2024 urina lysis panel , auto Unknown Analyte 1.003- 1.035 Not Available [facility] Surgery Schedule [address] [place], [address], 02/29/2024 13:07:16 02/29/2002/29/2024 urina lysis panel , auto Unknown Analyte 5.0 Not Available [facility] Surgery Schedule [address] [place], [address], 02/29/2024 13:07:16 02/29/2002/29/2024 urina lysis panel , auto Unknown Analyte 5.0-8. 0 Not Available [facility] Surgery Schedule [address] [place] [address], [address], 02/29/2024 13:07:16 02/29/2002/29/2024 urina lysis panel , auto Unknown Analyte Negati ve Not Available [facility] Surgery Schedule [address] [place] [address], [address], 02/29/2024 13:07:16 02/29/2002/29/2024 urina lysis panel , auto Unknown Analyte Negati ve Not Available [facility] Surgery Schedule [address] [place] [address], [address], 02/29/2024 13:07:16 02/29/2002/29/2024 urina lysis panel , auto Unknown Analyte Negati ve Not Available [facility] Surgery Schedule [address] [place] [address], [address], 02/29/2024 13:07:16 02/29/2002/29/2024 urina lysis panel , auto Unknown Analyte Negati ve Not Available [facility] Surgery Schedule [address] [place] [address], [address], 02/29/2024 13:07:16 02/29/2002/29/2024 urina lysis panel , auto Unknown Analyte Negati ve Not Available [facility] Surgery Schedule [address] [place], [address], 02/29/2024 13:07:16 02/29/2002/29/2024 urina lysis panel , auto Unknown Analyte Negati ve Not Available [facility] Surgery Schedule [address] [place], [address], 02/29/2024 13:07:16 02/29/2002/29/2024 urina lysis panel , auto Unknown Analyte Normal Not Available [facility] Surgery Schedule [address] [place], [address], 02/29/2024 13:07:16 02/29/2002/29/2024 urina lysis panel , auto Unknown Analyte Normal Not Available [facility] Surgery Schedule [address] [place], [address], 02/29/2024 13:07:16 02/29/2002/29/2024 urina lysis panel , auto Unknown Analyte Negati ve Not Available [facility] Schedule [address] [place], [address], 02/29/2024 13:07:16 02/29/2002/29/2024 urina lysis panel , auto Unknown Analyte Negati ve Not Available [facility] Surgery Schedule [address] [place], [address], 02/29/2024 13:07:16 02/29/2002/29/2024 urina lysis panel , auto Unknown Analyte Normal Not Available [facility] Surgery Schedule [address] [place], [address], 02/29/2024 13:07:16 02/29/2002/29/2024 urina lysis panel , auto Unknown Analyte Normal 1 mg/dl Not Available [facility] Surgery Schedule [address] [place], [address], 02/29/2024 13:07:16 02/29/20 24 02/29/2024 urina lysis panel , auto Unknown Analyte Negati ve Not Available [facility] Surgery Schedule [address] [place], [address], 02/29/2024 13:07:16 02/29/20 24 02/29/2024 urina lysis panel , auto Unknown Analyte Negati ve Not Available [facility] Surgery Schedule [address] [place], [address], 02/29/2024 13:07:16 02/29/20 24 02/29/2024 urina lysis panel , auto Unknown Analyte Negati ve Not Available [facility] Surgery Schedule [address] [place], [address], 02/29/2024 13:07:16 02/29/20 24 02/29/2024 urina lysis panel , auto Unknown Analyte Negati ve Not Available [facility] Surgery Schedule [address] [place], [address], 02/29/2024 13:07:16 06/08/19 25 06/08/2024 urina lysis panel , auto Unknown Analyte Clean Catch Not Available [facility] [place] Extended Services With [address], [place], [address], 06/08/2024 15:51:43 06/08/19 25 06/08/2024 urina lysis panel , auto Unknown Analyte Yellow Not Available [facility] Extended Services With [address], [place], [address], 06/08/2024 15:51:43 06/08/19 25 06/08/2024 urina lysis panel , auto Unknown Analyte Clear Not Available Count includes the [facility] Extended Services With [address], [place], [address], 06/08/2024 15:51:43 06/08/19 25 06/08/2024 urina lysis panel , auto Unknown Analyte 1.020 Not Available Count includes the [facility] Extended Services With [address] [place], [address], 06/08/2024 15:51:43 06/08/19 25 06/08/2024 urina lysis panel , auto Unknown Analyte 1.003- 1.035 Not Available [facility] Extended Services With [address] [place], [address], 06/08/2024 15:51:43 06/08/19 25 06/08/2024 urina lysis panel , auto Unknown Analyte 5.0 Not Available Count includes the [facility] Extended Services With [address] [place], [address], 06/08/2024 15:51:43 06/08/19 25 06/08/2024 urina lysis panel , auto Unknown Analyte 5.0-8. 0 Not Available [facility] Extended Services With [address] [place], [address], 06/08/2024 15:51:43 06/08/19 25 06/08/2024 urina lysis panel , auto Unknown Analyte Negati ve Not Available [facility] Extended Services With [address] [place], [address], 06/08/2024 15:51:43 06/08/19 25 06/08/2024 urina lysis panel , auto Unknown Analyte Negati ve Not Available [facility] Extended Services With [address] [place], [address], 06/08/2024 15:51:43 06/08/19 25 06/08/2024 urina lysis panel , auto Unknown Analyte Negati ve Not Available [facility] Extended Services With [address] [place], [address], 06/08/2024 15:51:43 06/08/19 25 06/08/2024 urina lysis panel , auto Unknown Analyte Negati ve Not Available [facility] Extended Services With [address] [place], [address], 06/08/2024 15:51:43 06/08/19 25 06/08/2024 urina lysis panel , auto Unknown Analyte Negati ve Not Available [facility] Extended Services With [address] [place], [address], 06/08/2024 15:51:43 06/08/19 25 06/08/2024 urina lysis panel , auto Unknown Analyte Negati ve Not Available [facility] Extended Services With [address] [place], [address], 06/08/2024 15:51:43 06/08/19 25 06/08/2024 urina lysis panel , auto Unknown Analyte Normal Not Available Count includes the [facility] Extended Services With [address] [place], [address], 06/08/2024 15:51:43 06/08/19 25 06/08/2024 urina lysis panel , auto Unknown Analyte Normal Not Available Count includes the [facility] Extended Services With [address] [place], [address], 06/08/2024 15:51:43 06/08/19 25 06/08/2024 urina lysis panel , auto Unknown Analyte Negati ve Not Available [facility] Extended [facility] With [address] [place], [address], 06/08/2024 15:51:43 06/08/19 25 06/08/2024 urina lysis panel , auto Unknown Analyte Negati ve Not Available [facility] [address] [place], [address], 06/08/2024 15:51:43 06/08/19 25 06/08/2024 urina lysis panel , auto Unknown Analyte Normal Not Available Count includes the [facility] Extended Services With [address] [place], [address], 06/08/2024 15:51:43 06/08/19 25 06/08/2024 urina lysis panel , auto Unknown Analyte Normal 1 mg/dl Not Available [facility] Services With [address] [place], [address], 06/08/2024 15:51:43 06/08/19 25 06/08/2024 urina lysis panel , auto Unknown Analyte Negati ve Not Available [facility] Extended [facility] With [address] [place], [address], 06/08/2024 15:51:43 06/08/19 25 06/08/2024 urina lysis panel , auto Unknown Analyte Negati ve Not Available [facility] Extended Services With [address] [place], [address], 06/08/2024 15:51:43 06/08/19 25 06/08/2024 urina lysis panel , auto Unknown Analyte Negati ve Not Available [facility] [address] [place], [address], 06/08/2024 15:51:43 06/08/19 25 06/08/2024 urina lysis panel , auto Unknown Analyte Negati ve Not Available [facility] [address] [place], [address], 06/08/2024 15:51:43 02/18/20 24 02/18/2024 CT, abdom en + pelvi s, w/o contr ast No observ ation record ed. [email or web address] [facility] (Radiology) [address] , [place], [address], 02/23/2024 11:15:31 Result Notes None recorded. Procedures Surgical History Date Name Laterality Status Provider Name and Address Organization Details Recorded Time Cholecystectomy completed Murelene Ronny [facility] 11/18/2023 17:11:40 [facility] 17:12:01 excision of melanoma completed Murelene Ronny [facility] 11/18/2023 17:12:11 [facility]23 17:12:17 partial resection of colon completed Murelene Ronny [facility] 11/18/2023 17:12:33 procedure on inner ear completed Murelene Ronny [facility] 11/18/2023 17:12:51 operation on uterus completed Murel ceasar Ronny [facility] 11/18/2023 17:13:06 Imaging Results None recorded. Procedure Notes None recorded. Medical Equipment None Reported. Allergies Allergen ID Allergen Name Allergen Category Reaction Reaction Severity Criticality Documentation Date Start Date Code Code System Note Provider Name and Address Organization Details Recorded Time 766972 Substance with sulfonami de structure and antibacte rial mechanism of action (substanc e) medicatio n Not available Not available Not available 11/18/2023 16883 8003 SNOMED Murelene Ronny [facility] 4 17:09:12 274812 Levaquin medicatio n Not available Not available Not available 11/18/2023 98871 2 RxNorm Murelene Ronny [facility] 4 17:09:18 655688 Benadryl medicatio n Not available Not available Not available 11/18/202330483 7 RxNorm [facility] 17:09:26 655045 Iodinated contrast media (substanc e) medicatio n Not available Not available Not available 11/18/2023 03519 2004 SNOMED Murelene Ronny [facility] 4 17:09:36 569371 caffeine food,medi cation Not available Not available Not available 11/18/2023 1886 RxNorm Murelene Ronny [facility] 4 17:09:49 379768 ibuprofen medicatio n Not available Not available Not available 11/18/2023 5640 RxNorm Murelene Ronny [facility] 4 17:09:58 Medications Name Sig Start Date Stop Date Status Note LastModified by Organization Details LastModified Time Diflucan 150 mg tablet Take 1 tablet every 72 hours by oral route. 2024 active Not Available Not Available Not Avai lable methenamine hippurate 1 gram tablet Take 1 tablet twice a day by oral route for 90 days. 2024 active Not Available Not Available Not Avai lable Cipro 500 mg tablet Take 1 tablet every 12 hours by oral route for 7 days. 06/08 completed Not Available Not Available Not Available Lopid 600 mg tablet Take 1 tablet twice a day by oral route. active Not Available Not Available No t Available cefuroxime axetil 500 mg tablet Take 1 tablet every 12 hours by oral route for 10 days, for UTI. 06/08 completed Not Available Not Available Not Available Asprin Ec Low Dose 81 mg tablet,delaye d release Take 1 tablet every day by oral route. active Not Available Not Available No t Available dexamethasone active Not Available Not Available Not Available cranberry active Not Available Not Marylou ilable Not Available Vitamin D active Not Available Not Marylou ilable Not Available Sudafed active Not Available Not Avail able Not Available Synthroid active Not Available Not Marylou ilable Not Available Prilosec active Not Available Not Avai lable Not Available Celexa active Not Available Not Availa ble Not Available Xanax active Not Available Not Availa ble Not Available metformin active Not Available Not Marylou ilable Not Available Chlor-Trimeto n active Not Available Not Available Not Available multivitamin active Not Available Not Available Not Available Probitoic Digestive Support (6 strain) 10 billion cell-100 mg capsule Take by oral route. active Not Available Not Available No t Available Vitals Date Recorded Body height Body mass index (BMI) Body weight Provider Name and Address Organization Details Last Updated DateTime 06/08/2024 162.56 cm 24 kg/m2 32142.93 g Rachel Jefferson [facility] 06/08/2024 15:50:57 Date Recorded Body height Body mass index (BMI) Body weight Provider Name and Address Organization Details Last Updated DateTime 11/18/2023 162.56 cm 26.6 kg/m2 08104.82 g Rachel Jefferson [facility] 11/18/2023 17:08:53 Date Recorded Body height Body mass index (BMI) Body weight Provider Name and Address Organization Details Last Updated DateTime 02/03/2024 162.56 cm 25.6 kg/m2 72358.26 g Rachel Jefferson [facility] 02/03/2024 16:05:03 Social History Question Answer Notes LastModified by OrganizZipidee ion Details LastModified Time Tobacco Sm[facility] 11/18/2023 17:11:31 What Was The Date Of Your Most Recent Tobacco Screening? 06/08/2024 Information not available 06/08/2024 Sex: Female Functional Status Question Answer Note LastModified by Organization D etails LastModified Time What is your level of alcohol consumption? None Information not available 11/18/2023 Mental Status None recorded. Family History Relationship Description Onset Age of this Age Resolved Age Notes LastModified by Organization Details LastModified Time Unspecified Relation Diabetes mellitus Not available 2023 17:10:40 Father Family history of malignant neoplasm Not available 2023 17:10:51 Mother Kidney stone Not availab le 11/18/2023 17:11:00 Medical History Condition Response Coronary Artery Disease N Other N Gout N Kidney Stones Y Kidney Cyst N Enlarged Prostate N Heart Arrhythmia N Head Trauma/Injury N Erectile Dysfunction N Emphysema N Sexually Transmitted Disease N Depression N Pneumonia Y Incontinence N Prostate Problems N Cancer Prostate N Paralysis N Anxiety Disorder N Hemorrhoids Y Obesity N Arthritis N Infertility N Acid Reflux (GERD) Y Hematuria N Cancer Y Stroke N Neck Injury N Previous Radiation Therapy? N Neurologic Disorder N Kidney Disease N Heart Conditions N Kidney or Bladder Problems Y Urinary Problems Y Constipation N Brain Injury N Ulcers N Prostate Hypertrophy N Low Testosterone N Tuberculosis N Previous Chemotherapy? N AIDS/HIV N BPH N Urinary Tract Infection Y Asthma N Cardiac Disease N Thyroid Disorder Y Hepatitis N PCOS N Colon Cancer N Hernia N Colon/Rectal Disorders Y Ostomy N Glaucoma N Pacemaker N Anesthesia Complications Y Genitourinary Disease N Radiation Therapy N Chronic Kidney Disease N Bladder or Kidney Problems Y Back Injury N High Cholesterol Y High PSA N Nervous System Disorder N Liver Disease N Organ Transplant N Dialysis N Allergies/Hayfever N False Teeth N Chronic Obstructive Pulmonary Disease N Parkinson's Disease N Chemotherapy N Transplant N Anemia N Multiple Sclerosis N Chest Pain N Back Pain N Proteinuria N Heart Attack (NC) N Mental Illness N Ovarian Cancer N Diabetes Y Seizures/Epilepsy N Genitourinary problem(s) N Congestive Heart Failure (CHF) N Kidney Failure N Sleep Apnea N Heart Disease N Bronchitis N Hypertension N Gynecological History Statement/Question Response Female Hormone Problem N # of Pregnancies 2 Abnormal Periods N # of Births 2 Could you be now? N Current Control Method menopause Uterus/Ovaries Problem N Obstetrics History GPAL:G 0 P 0 0 0 0 Past Encounters Encounter ID Performer Location Encounter Start Date Encounter Closed Date Diagnosis/Indication Diagnosis SNOMED-CT Code Diagnosis ICD10 Code Diagnosis Note [id number] YO MCCRAY MD [facility] [address],[place] [address] 11/18/2023 15:08:27 11/18/2023 19:09:47 Recurrent urinary tract infection 056162050 N39.0 Atrophic vaginitis 64620 000 N95.2 [id number] YO MCCRAY MD [facility] SERVICES [address] [place] [address],[place] [address] 02/03/2024 15:15:35 02/03/2024 17:00:46 Recurrent urinary tract infection 938767883 N39.0 Atrophic vaginitis 96743 000 N95.2 Urinary tr act infectious disease 76456176 N39.0 [id number] YO MCCRAY MD SURGERY SCHEDULE [address] [place] [address] 02/29/2024 12:24:38 02/29/2024 12:25:06 [id number] YO MCCRAY MD [facility] SERVICES [address] [address] 06/08/2024 14:52:12 06/12/2024 04:25:07 Recurrent urinary tract infection 478185853 N39.0 Candidiasis of vagina 72 397507 B37.31 Health Concerns Section Related Observation LastModified by Organization Detai ls LastModified Time None Recorded Concern Status LastModified by Organization Details LastModified Time None Recorded Advance Directives Directive None Recorded Payers Insurance Date Sequence Insurance Name Policy Number Policy [place] Covered Member ID [place] Member ID Guarantor Name 06/12/2024 2 [employer] (MEDICARE SUPPLEMENT) Nakita Carranza [id number] Nkaita Carranza 05/15/2024 1 [place] Nakita Carranza [id number] Nakita Carranza Notes Date Note Type Note Provider Name and Address Organization Details Recorded Time 11/18/2023 text/html 68 y/o is in the clinic today as a new patient for my initial evaluation and discussion of recurrent UTIs. She is a previous patient of Dr. Ferro. Patient report that she has had recurrent UTIs since April. Previous UTIs were approximately once annually. Patient was diagnosed with type 2 diabetes mellitus this year. She continues to have elevated blood glucoses. Patient uses estrogen cream, 3x a week. She voids every 3 hours with nocturia 1-2 times nightly. She denies hesitancy or urgency. No gross hematuria or dysuria. YO MCCRAY MD [facility] [place], [address], [facility] 11/21/2023 18:40:46 02/03/2024 text/html 69 y/o is in the clinic today to follow-up on recurrent UTIs. Patient has had 2 UTIs since November. Urine Culture 12/13/23-E. coli Patient was diagnosed with type 2 diabetes mellitus this year. She continues to have elevated blood glucoses. Patient uses estrogen cream, 3x a [place], [address], [facility] 02/09/2024 10:57:19 06/08/2024 text/html 69 y/o is in the clinic today to follow-up on recurrent UTIs. Cystoscopy on 02/29/24 was unremarkable. Patient thinks she has an underlying yeast infection of the groin area, but does not note difficulties or new concerns of urination, daytime frequency every 2-3 hours, nocturia 1-2x. She continues on estrogen cream, OTC probiotics, D-mannose. Urine Iatkzyo03/26/24= Pseudomonas ccyhyebynn55/05/24= E. coli Patient was diagnosed with type 2 diabetes mellitus and is taking metformin and reports better control of her blood sugars. YO MCCRAY MD [address] [place] [address], [phone], [facility] 06/11/2024 11:36:21 OBGyn Episode No OBEpisode recorded.
== END 2024-11-24 23:59 | disposition home or self-care (01) ==
LOC: LAB.DROPOF 11-27 10:24
PROVIDERS: PCP Family Medicine; Visit Provider Family Medicine
DX: R39.9 Unspecified symptoms and signs involving the genitourinary system (principal)
CPT/HCPCS: 87086; 87088; 87186